=== PATIENT | male | born 1945 | race Caucasian/White ===

== ENCOUNTER 2016-11-16 05:18 | Inpatient (IN) ==
--- NOTE | 2016-11-03 15:29 | EKG Report ---
Test Performed on : 11/03/2016 3:02:34 PM Test Reason : PAT Blood Pressure : / mmHG Vent. Rate : 084 BPM Atrial Rate : 084 BPM P-R Int : 206 ms QRS Dur : 132 ms QT Int : 414 ms P-R-T Axes : 081 -54 085 degrees QTc Int : 489 ms Normal sinus rhythm. Left axis deviation Right bundle branch block Left ventricular hypertrophy with repolarization abnormality Inferior infarct , age undetermined Abnormal ECG No previous ECGs available Confirmed by Memo LÓPEZ, Freddy Hazel ([id number]) on 11/04/2016 11:16:39 AM
[2016-11-03 15:54] LABS: HEMATOCRIT 32.9 % (42.0-52.0); HEMOGLOBIN 10.6 g/dL (14.0-18.0); MCH 28.5 PG (27-31); MCHC 32.2 g/dL (33-37); MCV 88.4 FL (81-99); MPV 9.7 FL (7.4-10.4); RBC 3.72 XMIL (4.7-6.1)
[2016-11-03 16:02] LABS: INR 0.96; PROTIME 10.1 Seconds (9.2-11.7); PTT 26.7 Seconds (22.0-36.0)
[2016-11-03 16:38] LABS: AGAP 12; BUN 18 mg/dL (8-22); CALCIUM 9.4 mg/dL (8.8-10.2); CHLORIDE 97 mmol/L (98-107); COSMO 273; POTASSIUM 4.2 mmol/L (3.5-5.1); SODIUM 135 mmol/L (136-145); TCO2 26 mmol/L (25-35)
[2016-11-16] MEDS ORDERED: PEPCID ONE (05:35)
[2016-11-16] MEDS ORDERED: REGLAN ONE (05:36)
[2016-11-16] MEDS ORDERED: LEVAQUIN 500 MG/D5W 500 MG/100 ML IVPB ONE (05:36)
[2016-11-16] MEDS ORDERED: LR 1,000 ML ONE (05:36)
[2016-11-16] MEDS ORDERED: DIPRIVAN 1% ONE (06:22)
[2016-11-16] MEDS ORDERED: FENTANYL ONE (06:23)
[2016-11-16] MEDS ORDERED: OFIRMEV 1000 MG/ISOTONIC SOLN 1,000 MG/100 ML BOTTLE ONE (07:57)
[2016-11-16] MEDS ORDERED: XYLOCAINE-MPF 2% ONE (07:57)
[2016-11-16] MEDS ORDERED: NORCURON ONE (07:58)
[2016-11-16] MEDS ORDERED: SODIUM CHLORIDE 0.9% 20 ML ONE (07:58)
[2016-11-16] MEDS ORDERED: QUELICIN (DOSE) ONE (07:58)
[2016-11-16] MEDS ORDERED: ROBINUL ONE (07:58)
[2016-11-16] MEDS ORDERED: DECADRON ONE (07:58)
[2016-11-16] MEDS ORDERED: ZOFRAN ONE (07:59)
[2016-11-16 08:09] LABS: URINE MICRO REVIEW NEEDED? NO; URINE SOURCE CATH
[2016-11-16] MEDS ORDERED: NEOSTIGMINE ONE (08:11)
[2016-11-16 08:13] LABS: BILIRUBIN URINE NEGATIVE (NEGATIVE); BLOOD URINE NEGATIVE (NEGATIVE); COLOR YELLOW; GLUCOSE URINE NEGATIVE (NEGATIVE); LEUKOCYTES URINE NEGATIVE (NEGATIVE); NITRITE URINE NEGATIVE (NEGATIVE); PH URINE 7.5; PROTEIN URINE NEGATIVE (NEGATIVE); TURBIDITY URINE CLEAR (CLEAR); UR EPITHELIAL CELLS <10 /HPF (<10); URINE BACTERIA NEGATIVE /HPF; URINE RBC <10 /HPF (<10); URINE WBC <10 /HPF (<10); UROBILINOGEN URINE NORMAL (NORMAL)
[2016-11-16] MEDS ORDERED: ENLON ONE (10:43)
[2016-11-16] MEDS ORDERED: LASIX ONE ×2 (10:47)
--- NOTE | 2016-11-16 10:50 | Diag Imaging Result Doc PS360 ---
EXAM: CHEST-PORTABLE INDICATION: poor inspiration TECHNIQUE: One view COMPARISON: None. FINDINGS: Inspiration is suboptimal. There are increased central lung markings and central vascular markings suggesting pulmonary venous congestion and mild interstitial edema. There is a small to moderate-sized left pleural effusion and probably a small right effusion as well. There is suggestion of bibasilar atelectasis. Cardiac silhouette is prominent, probably, at least in part, due to magnification from AP technique. There is a left-sided pacemaker in the expected position. There may be trace gas underlying the right hemidiaphragm that is assumed to be postoperative. Please correlate clinically. IMPRESSION: 1.Suggestion of bilateral effusions, largest on the left. 2.Suggestion of pulmonary venous congestion and mild interstitial edema. 3.Bibasilar atelectasis. 4.Suggestion of trace gas underlying the right hemidiaphragm that is probably postoperative. Please correlate clinically. Electronically signed by Sly Fofana 11/16/2016 10:47 AM
[2016-11-16] MEDS ORDERED: BENADRYL LIQUID PO PRN (10:56)
[2016-11-16] MEDS ORDERED: BENADRYL IV PRN (10:56)
[2016-11-16] MEDS ORDERED: MORPHINE IV PRN (10:56)
[2016-11-16] MEDS ORDERED: LABETALOL IV PRN (10:56)
[2016-11-16] MEDS ORDERED: TYLENOL PO PRN (10:56)
[2016-11-16] MEDS ORDERED: DITROPAN PO PRN (10:56)
[2016-11-16] MEDS ORDERED: B & O 15A SUPP PR PRN (10:56)
[2016-11-16] MEDS ORDERED: PHENERGAN IV PRN (11:04)
[2016-11-16] MEDS ORDERED: PHENERGAN PR PRN (11:04)
[2016-11-16] MEDS ORDERED: ZOFRAN IV PRN (11:04)
[2016-11-16] MEDS ORDERED: SODIUM CHLORIDE 0.9% INJ PRN (11:04)
[2016-11-16] MEDS ORDERED: PHENERGAN PO PRN (11:04)
[2016-11-16] MEDS ORDERED: NS 1,000 ML ONE (11:33)
[2016-11-16] MEDS: PHENERGAN ONE ×2 (12:19→13:06)
[2016-11-16] MEDS: HUMULIN R SUBQ SCH ×3 (14:39→23:39)
[2016-11-16] MEDS: NS 1,000 ML IV SCH ×2 (14:39→23:38)
[2016-11-16] MEDS ORDERED: INSULIN PEN NEEDLES ONE (15:52)
[2016-11-16] MEDS: GLUCOPHAGE PO SCH (17:17)
[2016-11-16] MEDS ORDERED: LANTUS SUBQ SCH (21:00)
[2016-11-16] MEDS ORDERED: LIPITOR PO SCH (21:00)
[2016-11-16] MEDS: COLACE PO SCH (21:33)
[2016-11-16] MEDS: PERIDEX MT SCH (21:33)
[2016-11-16] MEDS: NORCO-7.5 PO PRN (21:33)
[2016-11-17 03:07] VITALS: BP 113/51
[2016-11-17] MEDS: NORCO-7.5 PO PRN (05:43)
[2016-11-17] MEDS: HUMULIN R SUBQ SCH (05:47)
[2016-11-17] MEDS: NS 1,000 ML IV SCH (05:56)
[2016-11-17] MEDS ORDERED: LEVAQUIN 500 MG/D5W 500 MG/100 ML IVPB IV SCH (06:00)
[2016-11-17 06:22] LABS: HEMOGLOBIN 8.3 g/dL (14.0-18.0); MCH 28.9 PG (27-31); MCHC 31.9 g/dL (33-37); MCV 90.6 FL (81-99); MPV 9.7 FL (7.4-10.4); RBC 2.87 XMIL (4.7-6.1)
[2016-11-17 06:45] LABS: AGAP 10; BUN 18 mg/dL (8-22); CALCIUM 8.8 mg/dL (8.8-10.2); CHLORIDE 98 mmol/L (98-107); COSMO 273; POTASSIUM 4.5 mmol/L (3.5-5.1); SODIUM 135 mmol/L (136-145); TCO2 27 mmol/L (25-35)
--- NOTE | 2016-11-17 08:30 | PROGRESS NOTE ---
DATE: 11/16/2016 SUBJECTIVE: Mr. Kelly reports good night overnight. He denies significant pain. OBJECTIVE: Vital Signs: T 98.5 degrees, P 83, BP 113/51, urine output was recorded of 2 L , and his JV output was 190 mL. General: No acute distress. Head: Appropriately tender, nondistended. Incisions are clean, dry and intact. JV drain draining serosanguineous fluid. Ortiz catheter in place draining very light pink urine without clots. PERTINENT LABORATORY DATA: White cell count of 14,000, hematocrit of 26, creatinine of 0.9, and JV creatinine of 1.0. ASSESSMENT: A 71-year-old male status post extensive laparoscopic lysis of adhesions, robotic- assisted laparoscopic prostatectomy with laparoscopic urethral suspension, who is doing well. We went over postoperative care and wound care, as well as drain site care. His questions were answered. PLAN: 1. Discharge home today after drainage removed and chest x-ray is obtained to follow up on the pleural effusion per anesthesiology request. 2. He will go home with prescriptions for [place] 7.5, Ditropan and Bactrim DS. 3. I will see him on 11/21/2016 in clinic for wound check and Ortiz catheter removal. cc: Oziel Johnston MD
--- NOTE | 2016-11-17 08:55 | Diag Imaging Result Doc PS360 ---
CHEST-2 VIEWS - 11/17/2016 INDICATION: pleural effusion TECHNIQUE: COMPARISON: 11/16/2016 FINDINGS: Stable pacemaker and mild cardiomegaly. There is significant improvement in aeration of both lung bases, particularly on the left side that appear primus consolidated on the prior exam. There is some residual linear atelectasis at this lung base. At the right lung base, there is also improved aeration with decrease in the mild alveolar infiltrate. No new abnormalities. No pneumothorax or pleural effusion. The peritoneal free air is no longer present. IMPRESSION: Significant improvement from prior. Left basilar opacification was probably due to collapse. Electronically signed by Prosper Reilly 11/17/2016 8:53 AM
[2016-11-17] MEDS: PERIDEX MT SCH (08:58)
[2016-11-17] MEDS ORDERED: ALDACTONE PO SCH (09:00)
[2016-11-17] MEDS ORDERED: HYDROCHLOROTHIAZIDE PO SCH (09:00)
[2016-11-17] MEDS: COLACE PO SCH (09:00)
[2016-11-17] MEDS ORDERED: BENICAR PO SCH (09:00)
[2016-11-17] MEDS ORDERED: PROZAC PO SCH (09:00)
[2016-11-17] MEDS ORDERED: NEXIUM PO SCH (09:00)
[2016-11-17] MEDS: GLUCOPHAGE PO SCH (09:00)
--- NOTE | 2016-12-12 10:48 | OPERATIVE NOTE ---
PROCEDURE DATE: 11/16/2016 ATTENDING SURGEON: Oziel Johnston MD. PREOPERATIVE DIAGNOSES: 1. Prostate adenocarcinoma. 2. History of previous abdominal surgeries. PROCEDURES: Extensive lysis of adhesions laparoscopically, robotic assisted laparoscopic radical prostatectomy with partial nerve sparing, and laparoscopic urethral suspension. INDICATIONS: A 71-year-old male who presented with a rising PSA. He underwent prostate biopsy in April of 2016 which revealed 4 cores of [place] 6 prostate adenocarcinoma. He deferred his surgery for a number of months secondary to financial reasons. His PSA continued to climb. He eventually set up the surgery. He has a history of a previous open appendectomy with a quite large abdominal scar. He was counseled on the multiple risks including specifically the risk of urinary incontinence, erectile dysfunction, and conversion to open approach given his history of abdominal surgery. FINDINGS: Extensive abdominal adhesions along the ventral abdominal wall. Adequate hemostasis at the conclusion of the case, watertight vesicourethral anastomosis. Successful urethral suspension. DESCRIPTION OF PROCEDURE: After obtaining informed consent, the patient was brought to the operating room. Perioperative antibiotics and general endotracheal anesthesia were administered. He was placed in a lithotomy position, and prepped and draped in a sterile fashion. At 18-[place] Ortiz catheter was introduced with clear urine return. Given his infraumbilical large scar, we elected to place a Veress needle in the left upper quadrant which was done by making a small stab incision and introducing the needle perpendicular, connected to a saline filled syringe. We confirmed positive drop test and aspiration of fluid in syringe did not reveal evidence of blood or GI contents. We insufflated pneumoperitoneum pressure to 15 mmHg. Following that, we marked out the trocar sites in a standard prostatectomy fashion. Again, given midline incision, I started by placing 12 mm sales assistant displays trocar in the left upper quadrant. The robotic camera was introduced through that. He was found to have multiple adhesions along the ventral abdominal wall and right lower quadrant. I was able to introduce an 8 mm sales assistant displays port on his left side and then used laparoscopic scissors to meticulously take down those adhesions. I spent approximately 45 minutes to an hour doing so. Eventually, adhesions were taken down. There was no obvious evidence of bowel injury. Following that, we placed the rest of the trocars in a standard fashion. He was positioned in the Trendelenburg position. The robot was docked. I began by identifying peritoneum approximately 3 cm above the rectum and incising it. Right vas deferens was identified, isolated, and transected, followed by identification and isolation of the right seminal vesicle. We then did the same thing on the left side. We then developed a plane anterior to the vas deferens to the level of the prostate and posterior to the seminal vesicles by incising Denonvilliers' fascia and developing perirectal space. After that, we turned attention to dropping the bladder. We incised lateral to each medial umbilical ligament, giving us access to the space of Retzius. Once the bladder was dropped, we cleaned off fat, exposing endopelvic fascia. We incised along the lateral contour of the prostate bilaterally and continued with dissection of the fascia to the level of the apex. Puboprostatic ligaments were divided sharply. Superficial dorsal venous complex was controlled with bipolar cautery. Deep dorsal venous complex was controlled with 0 V-Loc suture in a [id number] fashion, followed by anterior periosteal elevation. We then turned attention to the bladder neck which was identified by gently tugging on the Ortiz. Monopolar cautery was used to transect the bladder neck until the Ortiz catheter was visible. He did not appear to have a sizeable median lobe. We circumferentially transected the bladder neck under direct vision. We then developed a plane between the prostate and bladder with anterior elevation of the prostate. Eventually, I was able to see, identify, and bring into the field vas deferens and seminal vesicles. We then turned attention to reflecting the neurovascular bundles which was done with the use of Hem-O-loks and with electrocautery in posterolateral locations bilaterally. We did incise periprostatic fascia, allowing us to shell out the prostate. It was dissected further posteriorly until we were only attached by the apex. I then isolated again with minimal use of cautery. The urethra was identified. I used urethral length preservation technique but not to the full extent given his pathology. The urethra was transected sharply and the prostate was delivered and placed into an EndoCatch bag. We then irrigated the field without evidence of significant active bleeding. I did use a piece of Surgicel at the level of the periurethral fascia due to small oozing. The hemostasis appeared adequate after that. We then used 3-0 V-Loc suture to perform a Chris stitch to reapproximate the perivesical and periurethral fascia in a running fashion. Those sutures were left in place for further laparoscopic suspension. We then turned our attention to the formal vesicourethral anastomosis which was performed in a running fashion with two 3-0 V-Loc sutures that were cross tied. This was done in a clockwise and counterclockwise fashion with the sutures subsequently cross tied. Subsequent to that, we will placed an 18-[place] Ortiz catheter and tested the anastomosis for watertightness with 300 mL of sterile saline. There was no evidence of significant leak. He continued to have some oozing and I elected to place a Kalen drain. Prior to that, we performed a formal laparoscopic urethral suspension. I used previously placed Chris stitches and elevated the level of the bladder neck by threading the sutures through the periosteum of the pubis bilaterally and suspending it. The suspension appeared to be adequate. Those needles were removed. We then decreased pneumoperitoneal pressure and again there was no evidence of significant active bleeding. The Kalen drain was then placed and secured to skin with nylon 2-0 suture. Following that, the pneumoperitoneal pressure was decreased 1 last time to 3 mmHg without evidence of bleeding. We then removed the trocars sites. Extended the supraumbilical incision and removed the specimen which was previously placed into the EndoCatch bag. The wounds were copiously irrigated. The fascia was closed with interrupted 0 Vicryl sutures in a [id number] fashion both for the supraumbilical incision as well as the left upper quadrant sales assistant displays trocar. The wounds were irrigated again. Then 4-0 Monocryl sutures were used for subcuticular closure. Dermabond skin adhesive was applied. His Ortiz catheter was placed to gravity drainage. The Kalen drain was placed to bulb suction. He was extubated and taken to the PACU for further recovery. ESTIMATED BLOOD LOSS: 150 mL. COMPLICATIONS: None. DISPOSITION: To PACU and subsequently the floor for observation with the drains as stated above. cc: Oziel Johnston MD
== END 2016-11-17 10:10 | disposition home or self-care (01) ==
LOC: SURHOLD 05:18 → 4N 10:13
PROVIDERS: ADMIT Urology; ATTEND Urology